=== PATIENT | female | born 1975 | race Caucasian/White ===

== ENCOUNTER 2020-09-07 12:11 | Emergency (ER) | payer MEDICAID, SELFPAY ==
[~2020-09-07] VITALS: Ht 172.7 cm; Wt 69.7 kg
--- NOTE | 2020-09-07 13:48 | NUR ---
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
[2020-09-07 14:08] LABS: BASOPHILS % (AUTO) 1 % (0-1); EOSINOPHILS % (AUTO) 3 % (1-7); LYMPHOCYTES % (AUTO) 30 % (22-44); MEAN CORPUSCULAR HEMOGLOBIN 32.8 pg (27.0-34.8); MEAN CORPUSCULAR HGB CONC 33.5 g/dL (32.4-35.8); MEAN PLATELET VOLUME 9.8 fL (7.4-10.4); MONOCYTES % (AUTO) 7 % (2-9); NEUTROPHILS % (AUTO) 60 % (42-75); PLATELET COUNT 188 x10^3/uL (130-400); RED BLOOD COUNT 4.46 x10^6/uL (3.82-5.3); RED CELL DISTRIBUTION WIDTH 13.4 % (9.6-15.2)
[2020-09-07 14:09] LABS: MD NO
[2020-09-07 14:17] LABS: ANION GAP 4 mmol/L (5-15); CALCIUM 8.4 mg/dL (8.5-10.1); CHLORIDE 107 mmol/L (98-107); CREATININE 0.76 mg/dL (0.55-1.02)
--- NOTE | 2020-09-07 14:49 | NUR ---
PT BACK FROM [place]. PT REPORTS SHE HAS HAD SOME PELVIC DISCOMFORT. VS STABLE. CALL LIGHT IN PLACE. WILL CONTINUE TO MONITOR.
--- NOTE | 2020-09-07 15:16 | NUR ---
PT WATCHING TV IN ROOM. NO ACUTE DISTRESS NOTED. CALL LIGHT IN PLACE. WILL CONTINUE TO MONITOR.
[2020-09-07 15:33] LABS: MICROSCOPIC INDICATED
[2020-09-07] MEDS ORDERED: CEFTRIAXONE 1,000 MG ONE (16:56)
[2020-09-07] MEDS ORDERED: CEFTRIAXONE 1,000 MG IM ONE (17:00)
[2020-09-07 17:31] VITALS: BP 114/78
== END 2020-09-07 17:33 | disposition home or self-care (01) ==
LOC: ED 16:49
DX: N83.292 Other ovarian cyst, left side (principal); R10.30 Lower abdominal pain, unspecified; R51.9 Headache, unspecified
CPT/HCPCS: 36415; 76830; 80048; 81001; 82040; 84703; 85025; 96372; 99285; J0696